=== PATIENT | female | born 1960 | race Hispanic/Latino ===

== ENCOUNTER 2017-01-09 17:01 | Inpatient (IN) | payer MEDICARE ==
[2017-01-09] MEDS ORDERED: GLUCAGEN IV ONE ×2 (17:29→17:44)
[2017-01-09] MEDS ORDERED: GLUCAGEN ONE (17:31)
[2017-01-09 17:56] LABS: Urine Drugs of Abuse Note Disclamer
[2017-01-09 18:16] LABS: Anion Gap 21 mmol/L; BUN/Creatinine Ratio 14; Blood Urea Nitrogen 10 mg/dL (7-17); Carbon Dioxide 28 mmol/L (22-30); Chloride 99.5 mmol/L (98-107); Glucose 198 mg/dL (65-100); Potassium 3.3 mmol/L (3.6-5.0); Sodium 145 mmol/L (137-145)
--- NOTE | 2017-01-09 18:16 | XRay Report ---
FINAL REPORT EXAM: XR CHEST 1V AP HISTORY: hypertension TECHNIQUE: upright single view chest PRIORS: None. FINDINGS: Cardiac and mediastinal contours are unremarkable. No focal pulmonary infiltrate is identified. No pleural fluid collection seen. Pulmonary vasculature is unremarkable. IMPRESSION: Negative single-view chest
[2017-01-09 18:17] LABS: Creatine Kinase MB 1.2 ng/mL (0.0-4.0)
[2017-01-09 18:20] LABS: Alanine Aminotransferase 8 units/L (7-56); Albumin 4.3 g/dL (3.9-5); Albumin/Globulin Ratio 1.5 %; Alkaline Phosphatase 138 units/L (35-129); Creatine Kinase 45 units/L (30-135); Total Protein 7.1 g/dL (6.3-8.2)
[2017-01-09 18:21] LABS: Bilirubin,Direct < 0.2 mg/dL (0-0.2); Bilirubin,Indirect 0.4 mg/dL
[2017-01-09 18:27] LABS: INR 1.12 (0.87-1.13); Partial Thromboplastin Time 28.5 Sec. (24.2-36.6)
[2017-01-09] MEDS ORDERED: K-DUR PO ONE (18:30)
[2017-01-09] MEDS ORDERED: MAGNESIUM SULFATE 2GM/50ML 2 GM/50 ML BAG IV ONE (18:30)
--- NOTE | 2017-01-09 19:03 | Emergency Department Report ---
ED General Adult HPI - General Chief complaint: Arrhythmia/Palpitations Stated complaint: WEAKNESS Time Seen by Provider: 01/09/17 17:27 Source: patient, EMS Mode of arrival: Stretcher Limitations: No Limitations - History of Present Illness Initial comments: She states that she felt some "palpitations earlier. She complains of generalized weakness. She did not pass out. She didn't feel like she was going to pass out but felt very weak. She does not complain of any chest pain. However she did describe some shortness of breath on exertion. Patient is currently taking atenolol 50 mg a day. This medication has not been recently changed. She denies taking an overdose of medicine. However she does admit to being on antidepressants and states that she took an overdose many years ago. She states that she is not depressed or suicidal at this point. -: Gradual, hour(s) Radiation: other (does not complain of pain) Consistency: constant (weakness) Improves with: none Worsens with: other (exertion) Associated Symptoms: denies other symptoms (except as indicated), shortness of breath - Related Data Allergies Allergy/AdvReac Type Severity Reaction Status Date / Time ketorolac [From Toradol] Allergy Itching Verified 01/09/17 17:19 tramadol Allergy Itching Verified 01/09/17 17:19 ED Review of Systems ROS: Stated complaint: WEAKNESS Other details as noted in HPI Constitutional: weakness. denies: chills, fever Eyes: denies: eye pain, eye discharge, vision change ENT: denies: ear pain, throat pain Respiratory: shortness of breath. denies: cough, wheezing Cardiovascular: denies: chest pain, palpitations Endocrine: no symptoms reported Gastrointestinal: denies: abdominal pain, nausea, diarrhea Genitourinary: denies: urgency, dysuria, discharge Musculoskeletal: denies: back pain, joint swelling, arthralgia Skin: denies: rash, lesions Neurological: denies: headache, weakness, paresthesias Psychiatric: denies: anxiety, depression Hematological/Lymphatic: denies: easy bleeding, easy bruising ED Past Medical Hx - Past Medical History Hx Hypertension: Yes Hx Diabetes: Yes (diet controlled) Hx Deep Vein Thrombosis: Yes Additional medical history: IVC filter - Surgical History Additional Surgical History: gastric bypass - Social History Smoking Status: Never Smoker Substance Use Type: None ED Physical Exam - General Limitations: No Limitations General appearance: alert, in no apparent distress - Head Head exam: Present: atraumatic, normocephalic - Eye Eye exam: Present: normal appearance, PERRL, EOMI. Absent: scleral icterus - ENT ENT exam: Present: mucous membranes moist - Neck Neck exam: Present: normal inspection - Respiratory Respiratory exam: Present: normal lung sounds bilaterally. Absent: respiratory distress - Cardiovascular Cardiovascular Exam: Present: normal rhythm, bradycardia. Absent: systolic murmur, diastolic murmur, rubs, gallop - GI/Abdominal GI/Abdominal exam: Present: soft, normal bowel sounds. Absent: distended, tenderness, guarding, rebound, rigid - Extremities Exam Extremities exam: Present: normal inspection - Back Exam Back exam: Present: normal inspection - Neurological Exam Neurological exam: Present: alert, oriented X3, CN II-XII intact. Absent: motor sensory deficit - Psychiatric Psychiatric exam: Present: normal affect, normal mood - Skin Skin exam: Present: warm, dry, intact, normal color. Absent: rash ED Course Vital Signs 01/09/17 17:13 Temperature 98.3 F Pulse Rate 34 L Respiratory 16 Rate Blood Pressure 143/77 O2 Sat by Pulse 99 Oximetry - Reevaluation(s) Reevaluation #1: The patient was given a milligram of glucagon IV. This did increase her heart rate apparently. It was repeated once. She remained otherwise hemodynamically stable. Her blood pressure remained within normal range. 01/09/17 19:05 Reevaluation #2: Patient's blood pressure is still well maintained. Her heart rate is in the low 30s however. She is admitted to telemetry for further care and monitoring. 01/09/17 19:15 ED Medical Decision Making - Lab Data Result diagrams: 01/09/17 17:39 Laboratory Results - last 24 hr 01/09/17 01/09/17 01/09/17 17:39 17:39 17:39 PT 15.0 H INR 1.12 APTT 28.5 Sodium 145 Potassium 3.3 L Chloride 99.5 Carbon Dioxide 28 Anion Gap 21 BUN 10 Creatinine 0.7 Estimated GFR > 60 BUN/Creatinine Ratio 14 Glucose 198 H Calcium 9.0 Magnesium 1.30 L Total Bilirubin 0.60 Direct Bilirubin < 0.2 Indirect Bilirubin 0.4 AST 15 ALT 8 Alkaline Phosphatase 138 H Total Creatine Kinase 45 CK-MB (CK-2) 1.2 CK-MB (CK-2) Rel Index 2.6 Troponin T < 0.010 NT-Pro-B Natriuret Pep 1630 H Total Protein 7.1 Albumin 4.3 Albumin/Globulin Ratio 1.5 TSH Free T4 Urine HCG, Qual Urine Opiates Screen Urine Methadone Screen Acetaminophen Ur Barbiturates Screen Ur Phencyclidine Scrn Ur Amphetamines Screen U Benzodiazepines Scrn Urine Cocaine Screen U Marijuana (THC) Screen Drugs of Abuse Note 01/09/17 01/09/17 01/09/17 17:39 17:39 17:46 PT INR APTT Sodium Potassium Chloride Carbon Dioxide Anion Gap BUN Creatinine Estimated GFR BUN/Creatinine Ratio Glucose Calcium Magnesium Total Bilirubin Direct Bilirubin Indirect Bilirubin AST ALT Alkaline Phosphatase Total Creatine Kinase CK-MB (CK-2) CK-MB (CK-2) Rel Index Troponin T NT-Pro-B Natriuret Pep Total Protein Albumin Albumin/Globulin Ratio TSH 0.311 Free T4 1.14 Urine HCG, Qual Negative Urine Opiates Screen Urine Methadone Screen Acetaminophen < 15.0 Ur Barbiturates Screen Ur Phencyclidine Scrn Ur Amphetamines Screen U Benzodiazepines Scrn Urine Cocaine Screen U Marijuana (THC) Screen Drugs of Abuse Note 01/09/17 17:46 PT INR APTT Sodium Potassium Chloride Carbon Dioxide Anion Gap BUN Creatinine Estimated GFR BUN/Creatinine Ratio Glucose Calcium Magnesium Total Bilirubin Direct Bilirubin Indirect Bilirubin AST ALT Alkaline Phosphatase Total Creatine Kinase CK-MB (CK-2) CK-MB (CK-2) Rel Index Troponin T NT-Pro-B Natriuret Pep Total Protein Albumin Albumin/Globulin Ratio TSH Free T4 Urine HCG, Qual Urine Opiates Screen Presumptive negative Urine Methadone Screen Presumptive negative Acetaminophen Ur Barbiturates Screen Presumptive negative Ur Phencyclidine Scrn Presumptive negative Ur Amphetamines Screen Presumptive negative U Benzodiazepines Scrn Presumptive positive Urine Cocaine Screen Presumptive negative U Marijuana (THC) Screen Presumptive negative Drugs of Abuse Note Disclamer - EKG Data -: EKG Interpreted by Me EKG shows normal: sinus rhythm Rate: bradycardia - EKG Data Interpretation: other - Radiology Data Radiology results: report reviewed interpreted by me: CXR normal per radiologist Critical Care Time: Yes Critical care time in (mins) excluding proc time.: 50 Critical care attestation.: If time is entered above; I have spent that time in minutes in the direct care of this critically ill patient, excluding procedure time. ED Disposition Clinical Impression: Symptomatic bradycardia, Hypomagnesemia, Hypokalemia Cardiomyopathy Qualifiers: Cardiomyopathy type: unspecified Qualified Code(s): I42.9 - Cardiomyopathy, unspecified Disposition: 09 OP ADMIT IP TO THIS HOSP Is pt being admited?: Yes Does the pt Need Aspirin: Yes Condition: Stable Referrals: PRIMARY CARE, [Referring] - 3-5 Days Time of Disposition: 19:15
[2017-01-09 19:30] LABS: Hemoglobin 14.2 gm/dl (10.1-14.3); Mean Corpuscular Hemoglobin 31 pg (28-32); Mean Corpuscular Volume 94 fl (79-97); Red Blood Count 4.57 M/mm3 (3.65-5.03); White Blood Count 5.2 K/mm3 (4.5-11.0)
[2017-01-09 19:31] LABS: Mean Corpuscular HGB Conc 33 % (30-34); Platelet Count 167 K/mm3 (140-440); Red Cell Distribution Width 16.2 % (13.2-15.2)
[2017-01-09 19:32] LABS: Basophils % (Auto) 0.6 % (0.0-1.8); Diff Status Complete; Eosinophils % (Auto) 1.1 % (0.0-4.3)
[2017-01-09] MEDS ORDERED: ATIVAN IV ONE (20:46)
[2017-01-09] MEDS ORDERED: ATIVAN ONE (20:51)
[2017-01-09] MEDS ORDERED: MORPHINE IV PRN (22:22)
[2017-01-09] MEDS ORDERED: ZOFRAN IV PRN (22:26)
[2017-01-09] MEDS ORDERED: TYLENOL PO PRN (22:27)
[2017-01-09] MEDS ORDERED: BENADRYL IV ONE (23:55)
[2017-01-10 01:38] LABS: Creatine Kinase 31 units/L (30-135)
[2017-01-10 01:54] LABS: Creatine Kinase MB < 1.0 ng/mL (0.0-4.0)
[2017-01-10] MEDS: AMBIEN PO PRN ×2 (03:20→21:37)
[2017-01-10 06:03] LABS: Anion Gap 21 mmol/L; BUN/Creatinine Ratio 19; Blood Urea Nitrogen 13 mg/dL (7-17); Calcium 8.7 mg/dL (8.4-10.2); Carbon Dioxide 24 mmol/L (22-30); Chloride 99.4 mmol/L (98-107); Glucose 168 mg/dL (65-100); Potassium 3.8 mmol/L (3.6-5.0); Sodium 141 mmol/L (137-145)
[2017-01-10 06:08] LABS: Creatine Kinase MB < 1.0 ng/mL (0.0-4.0)
[2017-01-10 06:09] LABS: Creatine Kinase 34 units/L (30-135)
[2017-01-10] MEDS ORDERED: LASIX PO PRN (06:29)
[2017-01-10] MEDS ORDERED: NON-FORMULARY (Diazepam [Valium] 10 MG) PO SCH (08:00)
[2017-01-10] MEDS: LEXAPRO PO SCH (09:20)
[2017-01-10] MEDS: ZANAFLEX PO SCH ×3 (09:20→21:37)
[2017-01-10] MEDS: XARELTO PO SCH (09:21)
[2017-01-10] MEDS ORDERED: TENORMIN PO SCH (10:00)
[2017-01-10] MEDS ORDERED: HEPARIN SUB-Q SCH (10:00)
--- NOTE | 2017-01-10 10:09 | History and Physical Report ---
CHIEF COMPLAINT: Weakness. Other complaint includes palpitation. HISTORY OF PRESENT ILLNESS: The patient is a 56-year-old female who states she has been feeling generally weak all over, but did not pass out and she also complained of palpitation, but denied chest pain. There was also history of shortness of breath and no cough. There was no history of fever or chills and no history of nausea or vomiting. The patient presented to the Emergency Room. PAST MEDICAL HISTORY: Pertinent for hypertension, diabetes mellitus, DVT with IVC placement. PAST SURGICAL HISTORY: Pertinent for gastric bypass surgery. FAMILY HISTORY: Noncontributory. SOCIAL HISTORY: The patient does not smoke, does not drink alcohol and does not use illicit drugs. MEDICATIONS: The patient's home medications include atenolol 50 mg by mouth daily, Wellbutrin 100 mg by mouth daily. Also, the patient is on diazepam 10 mg by mouth 3 times a day. The patient is on Lexapro 20 mg by mouth daily and Lasix 80 mg by mouth daily as well as Xarelto 10 mg by mouth daily and Zanaflex 4 mg by mouth 3 times daily and the patient is also on Ambien 10 mg at bedtime. ALLERGIES: THE PATIENT IS ALLERGIC TO KETOROLAC OR TORADOL. REVIEW OF SYSTEMS: CONSTITUTIONAL: There is no fever, no chills, no diaphoresis. HEENT: There is no headache or sore throat. CARDIOVASCULAR: There is no chest pain, orthopnea. RESPIRATORY: Shortness of breath present. There is no cough. GASTROINTESTINAL: There is no nausea, no vomiting, no abdominal pain, diarrhea or constipation. NEUROLOGICAL: There is generalized weakness, but no altered mental status. MUSCULOSKELETAL: There is no joint pain or swelling. DERMATOLOGICAL: There is no skin rash or itching. GENITOURINARY: There is no dysuria, hematuria, or flank pain. Rest of system review is normal. PHYSICAL EXAMINATION: GENERAL: At the time of exam, the patient was found to be alert, oriented x 3 and not in acute distress. VITAL SIGNS: Shows temperature of 98.5 degrees Fahrenheit, pulse of 39 up to 50, respirations 18, O2 sat of 96% on room air with blood pressure of 130/62. HEENT: Shows pupils to be equal, round and reactive to light and accommodation. Extraocular muscles are intact. NECK: Supple with no JVD or carotid bruit. CARDIOVASCULAR: Show first and second heart sounds with no gallops or murmurs. The heart rate is low. RESPIRATORY: Showed good air entry on both sides of the lung with no abnormal breath sounds. GASTROINTESTINAL: Show abdomen to be full, soft, nontender with no organomegaly or rigidity. NEUROLOGIC: Shows no focal deficit. MUSCULOSKELETAL: Show no joint swelling or tenderness. DERMATOLOGIC: Show no skin rash. GENITOURINARY: Showing no costovertebral angle tenderness. PERTINENT LABORATORY AND IMAGING STUDIES: The patient had CBC done with normal white count, normal hemoglobin and slightly elevated hematocrit of 43 with CBC differential showing elevated segmented neutrophils of 77%. Coagulation studies show slight increasing PT of 15, otherwise unremarkable. Chemistry shows slightly decreased potassium of 3.3 with low magnesium of 1.3 and elevated brain natriuretic peptide of 1630. Troponin level was normal. TSH level was normal, free T4 level was unremarkable. The urine test was negative. Urine drug screen was unremarkable. IMAGING STUDIES: The patient had a chest x-ray done that showed negative results, unremarkable chest x-ray. DIAGNOSES: 1. Weakness. 2. Palpitations. 3. Bradycardia. PLAN: The patient will be admitted to medical floor on telemetry and will have vital sign checked per protocol. The patient will have cardiac enzymes checked q. 6 hours x 2 levels and will have echocardiogram complete done this morning. The patient will be placed on home medications as shown in the medication reconciliation sheet and will have potassium replacement by mouth as well as IV. The patient will be on Tylenol 650 mg every 4 hours as needed for fever and headache, and will be on IV Zofran 4 mg every 6 hours for nausea and vomiting. JOB# [id number] OCN/NTS
[2017-01-10 14:10] LABS: Creatine Kinase 30 units/L (30-135)
[2017-01-10 14:36] LABS: Creatine Kinase MB < 1.0 ng/mL (0.0-4.0)
[2017-01-10] MEDS: WELLBUTRIN PO SCH (14:55)
[2017-01-10] MEDS: PERCOCET 5/325 PO PRN ×2 (16:45→21:37)
[2017-01-10 19:30] LABS: Creatine Kinase MB < 1.0 ng/mL (0.0-4.0)
[2017-01-10 19:31] LABS: Creatine Kinase 27 units/L (30-135)
--- NOTE | 2017-01-10 19:41 | Progress Note ---
Subjective Date of service: 01/10/17 Objective - Constitutional Vitals: Vital Signs - 12hr 01/10/17 01/10/17 01/10/17 07:54 08:00 08:10 Temperature 98.0 F Pulse Rate 73 59 L 51 L Respiratory 18 Rate Respiratory Rate [Head] Blood Pressure Blood Pressure 148/78 [Left] O2 Sat by Pulse 95 96 Oximetry 01/10/17 01/10/17 01/10/17 09:19 10:00 10:19 Temperature Pulse Rate Respiratory 20 20 Rate Respiratory 20 Rate [Head] Blood Pressure Blood Pressure [Left] O2 Sat by Pulse Oximetry 01/10/17 01/10/17 01/10/17 11:30 11:31 15:50 Temperature 97.9 F 98.3 F Pulse Rate 41 L 41 L 44 L Respiratory 20 Rate Respiratory Rate [Head] Blood Pressure 141/53 157/71 Blood Pressure [Left] O2 Sat by Pulse 93 94 97 Oximetry 01/10/17 01/10/17 16:45 17:45 Temperature Pulse Rate Respiratory 20 20 Rate Respiratory Rate [Head] Blood Pressure Blood Pressure [Left] O2 Sat by Pulse Oximetry - Labs CBC & Chem 7: 01/09/17 17:39 01/10/17 05:03 Labs: Abnormal lab results 01/10/17 01/10/17 Range/Units 05:03 18:32 Glucose 168 H (65-100) mg/dL Total Creatine Kinase 27 L (30-135) units/L
[2017-01-10] MEDS ORDERED: AMBIEN PO SCH (22:00)
--- NOTE | 2017-01-11 02:33 | Event Note ---
Date: 01/10/17 Pt seen and examined presented this am with bradycardia, will hold BB and continue current Mx and plan as dictated in h and P.
[2017-01-11] MEDS: PERCOCET 5/325 PO PRN ×4 (02:54→21:05)
[2017-01-11] MEDS: LEXAPRO PO SCH (09:58)
[2017-01-11] MEDS: ZANAFLEX PO SCH ×3 (09:59→21:05)
[2017-01-11] MEDS: XARELTO PO SCH (09:59)
[2017-01-11] MEDS: WELLBUTRIN PO SCH (09:59)
--- NOTE | 2017-01-11 13:46 | Discharge Summary ---
Providers - Providers Date of Admission: 01/09/17 19:18 Attending physician: REIM BILLY MD 01/11/17 13:39 Consult to Physician [CONS] Routine Reason For Exam: bradycardia Consulting Provider: CLAUDIO MERRILL Primary care physician: ESTELA BANDA Hospitalization Condition: Stable Hospital course: 56F with pmh of htn, dm, dvt sp IVC placement, hx of gastric bypass who presents with generalized weakness Symptomatic bradycardia atenolol was dc and now improved HTN continue BP medsDM continue DM diet and SSI Hypomagnesemia was repleted and now normalized Hx of DVT sp IVC filter placement continue xarelto Disposition: DC-01 TO HOME OR SELFCARE Time spent for discharge: 33 minutes Core Measure Documentation - Palliative Care Palliative Care/ Comfort Measures: Not Applicable - Core Measures Any of the following diagnoses?: none Exam - Constitutional Vitals: Temp Pulse Resp BP Pulse Ox 98.5 F 54 L 18 116/68 97 01/11/17 12:00 01/11/17 12:00 01/11/17 12:00 01/11/17 12:00 01/11/17 12:00 General appearance: Present: no acute distress, well-nourished - EENT Eyes: Present: PERRL ENT: hearing intact, clear oral mucosa - Neck Neck: Present: supple, normal ROM - Respiratory Respiratory effort: normal Respiratory: bilateral: CTA - Cardiovascular Heart Sounds: Present: S1 & S2. Absent: rub, click - Extremities Extremities: pulses symmetrical, No edema Peripheral Pulses: within normal limits - Abdominal General gastrointestinal: Present: soft, non-tender, non-distended, normal bowel sounds Female genitourinary: Present: normal - Integumentary Integumentary: Present: clear, warm, dry - Musculoskeletal Musculoskeletal: gait normal, strength equal bilaterally - Psychiatric Psychiatric: appropriate mood/affect, intact judgment & insight - Neurologic Neurologic: CNII-XII intact, moves all extremities Plan Follow up with: PRIMARY CAREMD [Referring] - 3-5 Days Prescriptions: Lisinopril/Hydrochlorothiazide [Zestoretic 10-12.5 mg] 1 tab PO QDAY #30 tablet Magnesium Oxide 250 mg PO DAILY #30 tablet
--- NOTE | 2017-01-11 17:09 | Progress Note ---
Assessment and Plan Assessment and plan: 56F with pmh of htn, dm, dvt sp IVC placement, hx of gastric bypass who presents with generalized weakness . She was found to have bradycardia with heart rate of less than 32 on admission. Symptomatic bradycardia atenolol was dc and now improved, thyroid function tests were normal New-onset Systolic CHF, not in acute exacerbation Echo shows EF of 35%. Obtain nuclear stress test, cardiology consult HTN continue BP medsDM continue DM diet and SSI Hypomagnesemia was repleted and now normalized Hx of DVT sp IVC filter placement continue xarelto Disposition: DC-01 TO HOME OR SELFCARE Time spent for discharge: 33 minutes Hospitalist Physical - Constitutional Vitals: Temp Pulse Resp BP Pulse Ox 98.7 F 66 18 153/74 95 01/11/17 16:00 01/11/17 16:00 01/11/17 16:00 01/11/17 16:00 01/11/17 16:00 General appearance: Present: no acute distress, well-nourished Results - Labs CBC & Chem 7: 01/09/17 17:39 01/10/17 05:03 Labs: Laboratory Last Values WBC 5.2 K/mm3 (4.5-11.0) 01/09/17 17:39 RBC 4.57 M/mm3 (3.65-5.03) 01/09/17 17:39 Hgb 14.2 gm/dl (10.1-14.3) 01/09/17 17:39 Hct 43.0 % (30.3-42.9) H 01/09/17 17:39 MCV 94 fl (79-97) 01/09/17 17:39 MCH 31 pg (28-32) 01/09/17 17:39 MCHC 33 % (30-34) 01/09/17 17:39 RDW 16.2 % (13.2-15.2) H 01/09/17 17:39 Plt Count 167 K/mm3 (140-440) 01/09/17 17:39 Lymph % (Auto) 15.8 % (13.4-35.0) 01/09/17 17:39 [place] % (Auto) 5.5 % (0.0-7.3) 01/09/17 17:39 Eos % (Auto) 1.1 % (0.0-4.3) 01/09/17 17:39 Baso % (Auto) 0.6 % (0.0-1.8) 01/09/17 17:39 Lymph # 0.8 K/mm3 (1.2-5.4) L 01/09/17 17:39 [place] # 0.3 K/mm3 (0.0-0.8) 01/09/17 17:39 Eos # 0.1 K/mm3 (0.0-0.4) 01/09/17 17:39 Baso # 0.0 K/mm3 (0.0-0.1) 01/09/17 17:39 Add Manual Diff Complete 01/09/17 17:39 Seg Neutrophils % 77.0 % (40.0-70.0) H 01/09/17 17:39 Seg Neutrophils # 4.0 K/mm3 (1.8-7.7) 01/09/17 17:39 PT 15.0 Sec. (12.2-14.9) H 01/09/17 17:39 INR 1.12 (0.87-1.13) 01/09/17 17:39 APTT 28.5 Sec. (24.2-36.6) 01/09/17 17:39 Sodium 141 mmol/L (137-145) 01/10/17 05:03 Potassium 3.8 mmol/L (3.6-5.0) 01/10/17 05:03 Chloride 99.4 mmol/L (98-107) 01/10/17 05:03 Carbon Dioxide 24 mmol/L (22-30) 01/10/17 05:03 Anion Gap 21 mmol/L 01/10/17 05:03 BUN 13 mg/dL (7-17) 01/10/17 05:03 Creatinine 0.7 mg/dL (0.7-1.2) 01/10/17 05:03 Estimated GFR > 60 ml/min 01/10/17 05:03 BUN/Creatinine Ratio 19 % 01/10/17 05:03 Glucose 168 mg/dL (65-100) H 01/10/17 05:03 Calcium 8.7 mg/dL (8.4-10.2) 01/10/17 05:03 Magnesium 1.90 mg/dL (1.7-2.3) 01/10/17 05:03 Total Bilirubin 0.60 mg/dL (0.1-1.2) 01/09/17 17:39 Direct Bilirubin < 0.2 mg/dL (0-0.2) 01/09/17 17:39 Indirect Bilirubin 0.4 mg/dL 01/09/17 17:39 AST 15 units/L (5-40) 01/09/17 17:39 ALT 8 units/L (7-56) 01/09/17 17:39 Alkaline Phosphatase 138 units/L (35-129) H 01/09/17 17:39 Total Creatine Kinase 27 units/L (30-135) L 01/10/17 18:32 CK-MB (CK-2) < 1.0 ng/mL (0.0-4.0) 01/10/17 18:32 CK-MB (CK-2) Rel Index 3.7 (0-4) 01/10/17 18:32 Troponin T < 0.010 ng/mL (0.00-0.029) 01/10/17 18:32 NT-Pro-B Natriuret Pep 1630 pg/mL (0-900) H 01/09/17 17:39 Total Protein 7.1 g/dL (6.3-8.2) 01/09/17 17:39 Albumin 4.3 g/dL (3.9-5) 01/09/17 17:39 Albumin/Globulin Ratio 1.5 % 01/09/17 17:39 TSH 0.311 mlU/mL (0.270-4.200) 01/09/17 17:39 Free T4 1.14 ng/dL (0.76-1.46) 01/09/17 17:39 Urine HCG, Qual Negative (Negative) 01/09/17 17:46 Urine Opiates Screen Presumptive negative 01/09/17 17:46 Urine Methadone Screen Presumptive negative 01/09/17 17:46 Acetaminophen < 15.0 ug/mL (10.0-30.0) 01/09/17 17:39 Ur Barbiturates Screen Presumptive negative 01/09/17 17:46 Ur Phencyclidine Scrn Presumptive negative 01/09/17 17:46 Ur Amphetamines Screen Presumptive negative 01/09/17 17:46 U Benzodiazepines Scrn Presumptive positive 01/09/17 17:46 Urine Cocaine Screen Presumptive negative 01/09/17 17:46 U Marijuana (THC) Screen Presumptive negative 01/09/17 17:46 Drugs of Abuse Note Disclamer 01/09/17 17:46
[2017-01-12] MEDS: PERCOCET 5/325 PO PRN ×4 (00:30→12:39)
[2017-01-12] MEDS: AMBIEN PO PRN (00:30)
[2017-01-12 05:56] VITALS: BP 159/68
[2017-01-12] MEDS: LEXAPRO PO SCH (10:29)
[2017-01-12] MEDS: WELLBUTRIN PO SCH (10:29)
[2017-01-12] MEDS: XARELTO PO SCH (10:30)
[2017-01-12] MEDS: ZANAFLEX PO SCH ×2 (10:30→13:55)
--- NOTE | 2017-01-12 10:33 | Progress Note ---
Assessment and Plan Assessment and plan: 56F with pmh of htn, dm, dvt sp IVC placement, hx of gastric bypass who presents with generalized weakness . She was found to have bradycardia with heart rate of less than 32 on admission. Symptomatic bradycardia atenolol was dc and now improved, thyroid function tests were normal New-onset Systolic CHF, not in acute exacerbation Echo shows EF of 35%. , cardiology consult optimize meds HTN continue BP medsDM continue DM diet and SSI Hypomagnesemia was repleted and now normalized Sp fall at home with bilat rib pain -rib xrays today Hx of DVT sp IVC filter placement continue xarelto Disposition: DC-01 TO HOME OR SELFCARE Time spent for discharge: 33 minutes Hospitalist Physical - Constitutional Vitals: Temp Pulse Resp BP Pulse Ox 98.0 F 57 L 18 159/68 97 01/12/17 05:16 01/12/17 06:00 01/12/17 05:16 01/12/17 05:16 01/12/17 05:16 General appearance: Present: no acute distress, well-nourished Results - Labs CBC & Chem 7: 01/09/17 17:39 01/10/17 05:03 Labs: Laboratory Last Values WBC 5.2 K/mm3 (4.5-11.0) 01/09/17 17:39 RBC 4.57 M/mm3 (3.65-5.03) 01/09/17 17:39 Hgb 14.2 gm/dl (10.1-14.3) 01/09/17 17:39 Hct 43.0 % (30.3-42.9) H 01/09/17 17:39 MCV 94 fl (79-97) 01/09/17 17:39 MCH 31 pg (28-32) 01/09/17 17:39 MCHC 33 % (30-34) 01/09/17 17:39 RDW 16.2 % (13.2-15.2) H 01/09/17 17:39 Plt Count 167 K/mm3 (140-440) 01/09/17 17:39 Lymph % (Auto) 15.8 % (13.4-35.0) 01/09/17 17:39 [place] % (Auto) 5.5 % (0.0-7.3) 01/09/17 17:39 Eos % (Auto) 1.1 % (0.0-4.3) 01/09/17 17:39 Baso % (Auto) 0.6 % (0.0-1.8) 01/09/17 17:39 Lymph # 0.8 K/mm3 (1.2-5.4) L 01/09/17 17:39 [place] # 0.3 K/mm3 (0.0-0.8) 01/09/17 17:39 Eos # 0.1 K/mm3 (0.0-0.4) 01/09/17 17:39 Baso # 0.0 K/mm3 (0.0-0.1) 01/09/17 17:39 Add Manual Diff Complete 01/09/17 17:39 Seg Neutrophils % 77.0 % (40.0-70.0) H 01/09/17 17:39 Seg Neutrophils # 4.0 K/mm3 (1.8-7.7) 01/09/17 17:39 PT 15.0 Sec. (12.2-14.9) H 01/09/17 17:39 INR 1.12 (0.87-1.13) 01/09/17 17:39 APTT 28.5 Sec. (24.2-36.6) 01/09/17 17:39 Sodium 141 mmol/L (137-145) 01/10/17 05:03 Potassium 3.8 mmol/L (3.6-5.0) 01/10/17 05:03 Chloride 99.4 mmol/L (98-107) 01/10/17 05:03 Carbon Dioxide 24 mmol/L (22-30) 01/10/17 05:03 Anion Gap 21 mmol/L 01/10/17 05:03 BUN 13 mg/dL (7-17) 01/10/17 05:03 Creatinine 0.7 mg/dL (0.7-1.2) 01/10/17 05:03 Estimated GFR > 60 ml/min 01/10/17 05:03 BUN/Creatinine Ratio 19 % 01/10/17 05:03 Glucose 168 mg/dL (65-100) H 01/10/17 05:03 Calcium 8.7 mg/dL (8.4-10.2) 01/10/17 05:03 Magnesium 1.90 mg/dL (1.7-2.3) 01/10/17 05:03 Total Bilirubin 0.60 mg/dL (0.1-1.2) 01/09/17 17:39 Direct Bilirubin < 0.2 mg/dL (0-0.2) 01/09/17 17:39 Indirect Bilirubin 0.4 mg/dL 01/09/17 17:39 AST 15 units/L (5-40) 01/09/17 17:39 ALT 8 units/L (7-56) 01/09/17 17:39 Alkaline Phosphatase 138 units/L (35-129) H 01/09/17 17:39 Total Creatine Kinase 27 units/L (30-135) L 01/10/17 18:32 CK-MB (CK-2) < 1.0 ng/mL (0.0-4.0) 01/10/17 18:32 CK-MB (CK-2) Rel Index 3.7 (0-4) 01/10/17 18:32 Troponin T < 0.010 ng/mL (0.00-0.029) 01/10/17 18:32 NT-Pro-B Natriuret Pep 1630 pg/mL (0-900) H 01/09/17 17:39 Total Protein 7.1 g/dL (6.3-8.2) 01/09/17 17:39 Albumin 4.3 g/dL (3.9-5) 01/09/17 17:39 Albumin/Globulin Ratio 1.5 % 01/09/17 17:39 TSH 0.311 mlU/mL (0.270-4.200) 01/09/17 17:39 Free T4 1.14 ng/dL (0.76-1.46) 01/09/17 17:39 Urine HCG, Qual Negative (Negative) 01/09/17 17:46 Urine Opiates Screen Presumptive negative 01/09/17 17:46 Urine Methadone Screen Presumptive negative 01/09/17 17:46 Acetaminophen < 15.0 ug/mL (10.0-30.0) 01/09/17 17:39 Ur Barbiturates Screen Presumptive negative 01/09/17 17:46 Ur Phencyclidine Scrn Presumptive negative 01/09/17 17:46 Ur Amphetamines Screen Presumptive negative 01/09/17 17:46 U Benzodiazepines Scrn Presumptive positive 01/09/17 17:46 Urine Cocaine Screen Presumptive negative 01/09/17 17:46 U Marijuana (THC) Screen Presumptive negative 01/09/17 17:46 Drugs of Abuse Note Disclamer 01/09/17 17:46
--- NOTE | 2017-01-12 12:33 | XRay Report ---
Bilateral RIBS: Fall, pain. There are slightly displaced fractures involving the anterior fourth through sixth ribs on the left as well as the fourth rib anteriorly on the right and possibly the fifth rib. In addition there also is disruption of the seventh anterior rib. Except for a focal left scar the lungs are clear and fully expanded. The heart is normal in size. Impression: Multilevel bilateral rib fractures with minimal offset at the fracture sites.
--- NOTE | 2017-01-12 15:20 | Consultation ---
History of Present Illness Consult date: 01/12/17 Consult reason: congestive heart failure History of present illness: Patient is a 57yr old woman who presented with complaints of palpitations and weakness. Initial workup with an ECG showed a sinus bradycardia, rate 34. Patient has a history of Hypertension which she takes atenolol 50mg for management. Patient denies chest pain and shortness of breath. She denies syncope. There are no significant pauses seen on telemetry. Cardiology consultation was requested for abnormal echocardiogram. Medications and Allergies Allergies Allergy/AdvReac Type Severity Reaction Status Date / Time ketorolac [From Toradol] Allergy Itching Verified 01/09/17 17:19 tramadol Allergy Itching Verified 01/09/17 17:19 Home Medications Medication Instructions Recorded Confirmed Last Taken Type Diazepam [Valium] 10 mg PO TID 01/09/17 01/09/17 Unknown History Escitalopram Oxalate [Lexapro] 20 mg PO DAILY 01/09/17 01/09/17 Unknown History Rivaroxaban [Xarelto] 10 mg PO QDAY 01/09/17 01/09/17 Unknown History Zolpidem [Ambien] 10 mg PO QHS 01/09/17 01/09/17 Unknown History buPROPion [Wellbutrin] 100 mg PO DAILY 01/09/17 01/09/17 Unknown History tiZANidine [Zanaflex] 4 mg PO TID 01/09/17 01/09/17 Unknown History Magnesium Oxide 250 mg PO DAILY #30 tablet 01/11/17 Unknown Rx Lisinopril/Hydrochlorothiazide 1 tab PO QDAY #30 tablet 01/12/17 Unknown Rx [Zestoretic 10-12.5 mg] traMADol [Ultram 50 MG tab] 50 mg PO Q6HR PRN #14 tablet 01/12/17 Unknown Rx Physical Examination Vital Signs Temp Pulse Resp BP Pulse Ox 98.3 F 34 L 16 143/77 99 01/09/17 17:13 01/09/17 17:13 01/09/17 17:13 01/09/17 17:13 01/09/17 17:13 General appearance: no acute distress HEENT: Positive: PERRL Neck: Positive: trachea midline Cardiac: Positive: Reg Rate and Rhythm, Bradycardia Lungs: Positive: Decreased Breath Sounds Neuro: Positive: Grossly Intact Results 01/09/17 17:39 01/10/17 05:03 Assessment and Plan Symptomatic bradycardia atenolol now discontinued Hypertension Hypomagnesemia Echocardiogram reviewed by the associate web developer today and reports a permanent Eustachian valve, ejection fraction 55-60%. No further cardiac workup indicated. Stable cardiac michel.
== END 2017-01-12 14:10 | disposition home or self-care (01) | DRG 309 ==
LOC: ED 17:01 → 4A 19:18
PROVIDERS: ADMIT Internal Medicine; ATTEND Internal Medicine
DX: R00.1 Bradycardia, unspecified (principal); I50.20 Unspecified systolic (congestive) heart failure; I42.9 Cardiomyopathy, unspecified; E87.6 Hypokalemia; E83.42 Hypomagnesemia; Z88.8 Allergy status to other drugs, medicaments and biological substances; E11.9 Type 2 diabetes mellitus without complications; I11.0 Hypertensive heart disease with heart failure; T44.7X5A Adverse effect of beta-adrenoreceptor antagonists, initial encounter
CPT/HCPCS: 36415; 71010; 71110; 80048; 80074; 80307; 80320; 81025; 82550; 82553; 83735; 83880; 84439; 84443; 84484; 85025; 85610; 85730; 93005; 93010; 93306; 99291; G0480; J1200; J1610; J2060; J2270; J2930; J3475